=== PATIENT | female | born 2000 | race Caucasian/White ===

== ENCOUNTER 2019-10-04 10:43 | Emergency (ER) | payer MEDICAID ==
[~2019-10-04] VITALS: Ht 154.9 cm; Wt 61.2 kg
[2019-10-04 11:05] VITALS: BP_SYST 104
--- NOTE | 2019-10-04 11:10 | NUR ---
Patient triaged and placed in waiting room. VSS and patient appears in no acute distress at this time. Accompanied by SELF, awaiting available bed, and MD notified of need for MSE.
[2019-10-04 12:30] VITALS: BP_SYST 106
--- NOTE | 2019-10-04 12:34 | NUR ---
Pt broughtr by self , c/o cough/congestion, bodyaches, skin pink and warm, cap refill <3, VSS.
--- NOTE | 2019-10-04 12:35 | NUR ---
Jaswinder Horn at bedside examining patient
--- NOTE | 2019-10-04 12:43 | NUR ---
Patient given written and verbal discharge instructions and verbalizes understanding. ER MD discussed with patient the results and treatment provided. Patient in stable condition. ID arm band removed. Rx of Tamiflu, Ibuprofen, Promethazine given. Patient educated on pain management and to follow up with PMD. Pain Scale 2/10 tolerable for patient . Opportunity for questions provided and answered. Medication side effect fact sheet provided.
== END 2019-10-04 12:30 | disposition home or self-care (01) ==
LOC: SED 10:43
DX: J10.1 Influenza due to other identified influenza virus with other respiratory manifestations (principal); J45.909 Unspecified asthma, uncomplicated
CPT/HCPCS: 36415; 86710; 99283

== ENCOUNTER 2021-04-29 15:55 | Emergency (ER) | payer MEDICAID ==
[~2021-04-29] VITALS: Ht 154.9 cm; Wt 63.5 kg
[2021-04-29 16:35] VITALS: BP_SYST 119
--- NOTE | 2021-04-29 16:35 | NUR ---
PT TO REMAIN IN COVID TENT UNTIL ER BED BECOMES AVAILABLE.
--- NOTE | 2021-04-29 16:45 | NUR ---
COVID SWAB OBTAINED AND SENT TO LAB FOR ANALYSIS.
--- NOTE | 2021-04-29 17:30 | NUR ---
ER Dr. Randle at bedside examining patient.
--- NOTE | 2021-04-29 17:45 | NUR ---
Patient given written and verbal discharge instructions and verbalizes understanding. ER MD discussed with patient the results and treatment provided. Patient in stable condition. ID arm band removed. Rx of Prilosec given. Patient educated on pain management and to follow up with PMD. Pain Scale 0. Opportunity for questions provided and answered. Medication side effect fact sheet provided.
[2021-04-29] MEDS ORDERED: OMEP20CA15 PO (19:07)
[2021-04-29 19:24] LABS: BASOPHILS % (AUTO) 0.3 % (0.0-2.0); EOSINOPHILS # (AUTO) 0.2 K/uL (0.0-0.4); EOSINOPHILS % (AUTO) 1.6 % (0.0-4.0); HEMATOCRIT 40.7 % (36-48); HEMOGLOBIN 13.8 g/dL (12.0-16.0); LYMPHOCYTES # (AUTO) 1.7 K/uL (1.0-5.5); LYMPHOCYTES % (AUTO) 16.1 % (20.5-51.5); MEAN CORPUSCULAR HEMOGLOBIN 30 pg (27-31); MEAN CORPUSCULAR HGB CONC 34 % (32-36); MEAN CORPUSCULAR VOLUME 88 fL (79.0-98.0); MONOCYTES # (AUTO) 0.6 K/uL (0.0-1.0); MONOCYTES % (AUTO) 5.8 % (1.7-9.3); NEUTROPHILS # (AUTO) 7.9 K/uL (1.8-7.7); NEUTROPHILS % (AUTO) 76.2 % (40.0-70.0); PLATELET COUNT (AUTO) 237 K/uL (130-430); RED BLOOD CELL COUNT(AUTO) 4.63 MIL/uL (4.2-6.2); RED CELL DISTRIBUTION WIDTH 13.7 % (9.0-15.0); WHITE BLOOD COUNT (AUTO) 10.4 K/uL (4.8-10.8)
[2021-04-29 19:46] LABS: ALBUMIN 4.1 g/dL (3.4-4.8); CREATININE 0.87 mg/dL (0.55-1.30); POTASSIUM 4.2 mmol/L (3.5-5.1); TOTAL BILIRUBIN 0.5 mg/dL (0.0-1.0)
[2021-04-29 19:47] VITALS: BP_SYST 119
== END 2021-04-29 19:47 | disposition home or self-care (01) ==
LOC: SED 15:55
DX: K29.70 Gastritis, unspecified, without bleeding (principal); J45.909 Unspecified asthma, uncomplicated; Z79.899 Other long term (current) drug therapy; Z20.822 Contact with and (suspected) exposure to COVID-19
CPT/HCPCS: 36415; 76700-TC; 80053; 82150; 83690; 84703; 85025; 99284